=== PATIENT | male | born 1970 | race Caucasian/White ===

== ENCOUNTER → 2020-12-23 | Outpatient (REF) | payer OTHER | LOC: M LAB REF 15:43 | PROVIDERS: ATTEND Surgery | DX: L97.412 Non-pressure chronic ulcer of right heel and midfoot with fat layer exposed (principal) ==

== ENCOUNTER → 2025-05-28 | Outpatient (REF) | payer OTHER | LOC: M SFHCWOUN 16:57 | PROVIDERS: ATTEND Surgery | DX: E11.622 Type 2 diabetes mellitus with other skin ulcer (principal) ==

== ENCOUNTER 2025-06-09 12:50 | Emergency (ER) | payer OTHER | END 2025-06-09 15:59 | disposition E | LOC: M ED 12:50 → EDBD 12:50 → M ED 15:59 | DX: I46.9 Cardiac arrest, cause unspecified (principal); E11.9 Type 2 diabetes mellitus without complications; I10 Essential (primary) hypertension; E78.5 Hyperlipidemia, unspecified; E66.9 Obesity, unspecified ==